=== PATIENT | female | born 1980 | race Caucasian/White ===

== ENCOUNTER 2018-04-27 09:09 | Inpatient (IN) | payer BC, OTHER ==
[2018-04-27] VITALS (7 sets, daily range): BP systolic 118–143; BP diastolic 71–88
[~2018-04-27] VITALS: Ht 172.7 cm; Wt 125.6 kg
--- NOTE | ~2018-04-27 | 2DMMODE ---
[facility] [employer] [address] 2 D/M-MODE ECHOCARDIOGRAM Name: DEVANTE STROUD Room #: 245-P ADM IN .R.#: [id number] Admission: 04/27/18 Attend Phys: Jose Hong MD Discharge: Date of : 82 Date of Service: 04/28/18 1504 Report #: [id number] THIS REPORT FOR: //name// APPROVED REPORT Study performed: 04/28/2018 13:34:50 EXAM: Comprehensive 2D, Doppler, and color-flow Echocardiogram Patient Location: ICU Room #: [facility] Status: routine BSA: 2.31 HR: 82 bpm BP: 131/89 mmHg Other Information Study Quality: Adequate Indications Pulmonary Embolism 2D Dimensions IVC: 18.00 mm Tricuspid Valve TR Peak Severino.: 2.52 m/s TR Peak Gr.: 25.33 mmHg PA Pressure: 30.00 mmHg Left Ventricle The left ventricle is normal size. There is normal left ventricular wall thickness. The left ventricular systolic function is normal. The left ventricular ejection fraction is within the normal range. LVEF is 55-60%. This study is not technically sufficient to allow evaluation of the LV diastolic function. Right Ventricle Right ventricle is mildly dilated. Right ventricular systolic function is hypokinetic Atria The left atrium size is normal. The right atrium size is normal. Aortic Valve [facility] [address] [place] [address] 2 D/M-MODE ECHOCARDIOGRAM Name: DEVANTE STROUD Room #: 245-P ADM IN M.R.#: [id number] Admission: 04/27/18 Attend Phys: Jose Hong MD Discharge: Date of : 82 Date of Service: 04/28/18 1504 Report #: [id number] The aortic valve is normal in structure. Mitral Valve The mitral valve is normal in structure. Tricuspid Valve The tricuspid valve is normal in structure. There is trace tricuspid regurgitation. Estimated PAP 30 mmHg. There is mild pulmonary hypertension. Pulmonic Valve The pulmonary valve is normal in structure. Great Vessels The aortic root is normal in size. IVC is normal in size and collapses >50% with inspiration. Pericardium There is no pericardial effusion. <Conclusion> The left ventricular systolic function is normal. LVEF is 55-60%. Right ventricle is mildly dilated. Right ventricular systolic function is hypokinetic There is trace tricuspid regurgitation. Estimated PAP 30 mmHg. There is no pericardial effusion. <ELECTRONICALLY SIGNED> By: Ryan Simmons MD, [facility] 04/28/18 1504 1504 1504 Ryan Simmons MD, FACC /INF
--- NOTE | ~2018-04-27 | 2DMMODE ---
[facility] [place] [address] 2 D/M-MODE ECHOCARDIOGRAM Name: MAXIMUSDEVANTE Room #: 245-P [facility]#: [id number] Admission: 04/27/18 Attend Phys: Jose Hong MD Discharge: Date of : 82 Date of Service: 04/27/18 1302 Report #: [id number] THIS REPORT FOR: //name// APPROVED REPORT Study performed: 04/27/2018 11:05:22 EXAM: Comprehensive 2D, Doppler, and color-flow Echocardiogram Patient Location: ER Room #: 1 Status: routine BSA: 2.34 HR: 98 bpm BP: 143/77 mmHg Other Information Study Quality: Good Indications Pulmonary Embolism Chest Pain 2D Dimensions RVDd: 40.05 mm LVEF(%): 75.42 (>50%) IVSd: 8.42 (7-11mm) LVOT Diam: 23.39 (18-24mm) LVDd: 55.05 mm PWd: 9.57 (7-11mm) Ascending Ao: 35.41 (22-36mm) LVDs: 30.46 (25-40mm) Aortic Root: 35.81 mm IVC: 12.00 mm Ford's LVEF: 75.42 % Volumes Left Atrial Volume (Systole) Single Plane 4CH: 28.33 mL Single Plane 2CH: 30.58 mL LA ESV Index: 14.00 mL/m2 Aortic Valve AoV Peak Severino.: 1.03 m/s AO Peak Gr.: 4.27 mmHg LVOT Max P.48 mmHg LVOT Max V: 0.93 m/s KAYLIN Vmax: 3.87 cm2 Mitral Valve E/A Ratio: 0.7 MV Decel. Time: 173.01 ms [facility] [place] [address] 2 D/M-MODE ECHOCARDIOGRAM Name: DEVANTE STROUD Room #: 245-P [facility] IN M.R.#: [id number] Admission: 04/27/18 Attend Phys: Jose Hong MD Discharge: Date of : 82 Date of Service: 04/27/18 1302 Report #: [id number] MV E Max Severino.: 0.53 m/s MV A Severino.: 0.74 m/s MV PHT: 50.17 ms Pulmonary Valve PV Peak Severino.: 0.93 m/s PV Peak Gr.: 3.50 mmHg Pulmonary Vein P Vein S: 0.72 m/s P Vein A: 0.23 m/s P Vein D: 0.41 m/s P Vein S/D Ratio: 1.76 Tricuspid Valve TR Peak Severino.: 3.17 m/s TR Peak Gr.: 40.08 mmHg PA Pressure: 45.00 mmHg Left Ventricle The left ventricle is normal size. There is normal LV segmental wall motion. There is normal left ventricular wall thickness. The left ventricular systolic function is normal. The left ventricular ejection fraction is within the normal range. LVEF is 60-65%. Grade I - abnormal relaxation pattern. Right Ventricle Right ventricle is at the upper limits of normal. Right ventricle is hypokinetic Atria The left atrium size is normal. Right atrium is at the upper limits of normal. Aortic Valve The aortic valve is normal in structure. No aortic regurgitation is present. There is no aortic valvular stenosis. Mitral Valve The mitral valve is normal in structure. There is no mitral valve regurgitation noted. No evidence of mitral valve stenosis. Tricuspid Valve The tricuspid valve is normal in structure. There is trace to mild tricuspid regurgitation. Estimated PAP 45 mmHg. There is moderate pulmonary hypertension. Pulmonic Valve [address] [address] 2 D/M-MODE ECHOCARDIOGRAM Name: MAXIMUSDEVANTE Brewer Room #: 245-P [facility]#: [id number] Admission: 04/27/18 Attend Phys: Jose Hong MD Discharge: Date of : 82 Date of Service: 04/27/18 1302 Report #: [id number] The pulmonary valve is normal in structure. There is no pulmonic valvular regurgitation. Great Vessels The aortic root is normal in size. IVC is normal in size and collapses >50% with inspiration. Pericardium There is no pericardial effusion. <Conclusion> The left ventricular systolic function is normal. There is normal LV segmental wall motion. LVEF is 60-65%. Mild diastolic dysfunction Right ventricle is at the upper limits of normal, hypokinetic The aortic valve is normal in structure. No aortic regurgitation or stenosis The mitral valve is normal in structure. No mitral valve regurgitation There is trace to mild tricuspid regurgitation. Estimated pulmonary artery pressure of 45 mmHg. There is no pericardial effusion. <ELECTRONICALLY SIGNED> By: Ryan Simmons MD, FACC 04/27/18 1302 1302 1302 Ryan Simmons MD, FACC /INF
--- NOTE | ~2018-04-27 | 2DMMODE ---
[address] [address] 2 D/M-MODE ECHOCARDIOGRAM Name: DEVANTE STROUD Room #: 351-P ADM IN M.R.#: [id number] Admission: 04/27/18 Attend Phys: Jose Hong MD Discharge: Date of : 82 Date of Service: 05/01/18 1343 Report #: [id number] THIS REPORT FOR: //name// APPROVED REPORT Study performed: 05/01/2018 09:51:21 EXAM: Comprehensive 2D, Doppler, and color-flow Echocardiogram Patient Location: Bedside Room #: [facility] Status: routine BSA: 2.35 HR: 90 bpm BP: 119/86 mmHg Other Information Study Quality: Good Indications HTN, Saddle PE 2D Dimensions RVDd: 39.26 mm IVC: 0.80 mm Tricuspid Valve RAP Estimate: 5.00 mmHg Left Ventricle The left ventricle is normal size. The left ventricular systolic function is normal. LVEF is 60-65%. Right Ventricle The right ventricle is mildly dilated The right ventricular systolic function is normal. Atria Right atrium is at the upper limits of normal. Aortic Valve The aortic valve is normal in structure. No aortic regurgitation is present. Mitral Valve The mitral valve is normal in structure. There is no mitral valve [address] [address] 2 D/M-MODE ECHOCARDIOGRAM Name: DEVANTE STROUD Room #: 351-P ADM IN M.R.#: [id number] Admission: 04/27/18 Attend Phys: Jose Hong MD Discharge: Date of : 82 Date of Service: 05/01/18 1343 Report #: [id number] regurgitation noted. Tricuspid Valve The tricuspid valve is normal in structure. There is no tricuspid valve regurgitation noted. Unable to assess PA pressure. Pulmonic Valve The pulmonary valve is normal in structure. Trace pulmonic regurgitation. Great Vessels IVC is normal in size and collapses >50% with inspiration. Pericardium There is no pericardial effusion. <Conclusion> The left ventricular systolic function is normal. LVEF is 60-65%. The right ventricle is mildly dilated The aortic valve is normal in structure. The mitral valve is normal in structure. Pulmonary artery pressure could not be ascertained There is no pericardial effusion. <ELECTRONICALLY SIGNED> By: Ryan Simmons MD, FACC 05/01/18 1343 42 42 Ryan Simmons MD, FACC /INF
--- NOTE | ~2018-04-27 | HC ---
[facility] [place] [address] CONSULTATION Name: DEVANTE STROUD Room #: 245-P ADM IN M.R.#: [id number] Admission: 04/27/18 Attend Phys: Jose Hong MD Discharge: Date of : 82 Report #: [id number] THIS REPORT FOR: //name// CC: Jose Paniagua Ms. Siva Marinelli MD PULMONARY CONSULTATION PRIMARY CARE PHYSICIAN: Dr. Porfirio Marinelli. REFERRAL PHYSICIAN: Dr. Hong. REASON FOR REFERRAL: Massive pulmonary embolus. HISTORY OF PRESENT ILLNESS: The patient is a 37-year-old white female who was sent to the ER from Dr. Marinelli's office due to syncope, tachycardia and chest pains. She was subsequently found to have massive pulmonary embolus. A pulmonary consultation was requested. The patient was in her usual state of health until 2 days prior to presentation when she started to develop tachycardia. She also noted chest pain described as being sharp that only lasted few seconds. Yesterday, she had 3 bouts of syncope. She had 2 syncopes occurring at the workplace and 1 at home. She denies any significant trauma. She was seen at [facility] yesterday. I do not have the details of evaluation, but she wanted to be discharged to home due to concerns for hospital bills. CT chest angiogram shows large massive saddle pulmonary embolus. She has an extensive DVT involving the left lower extremity. EKG shows left ventricular hypertrophy, nonspecific T-wave changes, prolonged QT interval. Chest x-ray was unremarkable. She has been on control pills for a few years. She denies any past history of venothromboembolic disease. She denies any family history of venothromboembolic disease. In October of this year, she underwent knee surgery. Otherwise, denies any recent ophthalmologic surgery within the past 3 months or neurologic surgery including CVA. Again, she reports no injury from a syncope. PAST MEDICAL HISTORY: Notable for depression, hypertension, exogenous obesity. ALLERGIES: None to medications. [facility] [address] [place] [address] CONSULTATION Name: MAXIMUSILIANADEVANTE Osman Room #: 245-P [facility] IN M.R.#: [id number] Admission: 04/27/18 Attend Phys: Jose Hong MD Discharge: Date of : 82 Report #: [id number] HOME MEDICATIONS: Lorazepam, sertraline, drospir/eth estra/levomefol, Nowata one tablet 4 hours p.r.n. FAMILY HISTORY: Noncontributory. SOCIAL HISTORY: She drinks socially. She denies any tobacco use. REVIEW OF SYSTEMS: As mentioned above, otherwise 10-point system review negative including denies any headache or musculoskeletal pains. PHYSICAL EXAMINATION: GENERAL: She is awake, alert, in mild distress. VITAL SIGNS: Temperature is 98 degrees Fahrenheit, pulse is 90, respiratory rate is 18, blood pressure 142/77 mmHg, saturation is 98%. HEENT: Normocephalic, atraumatic. NECK: Supple, without any lymphadenopathy or thyromegaly. CHEST: Breath sounds are good bilaterally without any rales or wheezes. CARDIOVASCULAR: Normal S1, S2. There are no murmurs or gallop. There is no JVD. No carotid bruit. Pulses are 2+/4+ bilaterally. ABDOMEN: Moderately obese, soft, nontender, no organomegaly or masses felt. GENITOURINARY: Deferred. RECTAL: Deferred. EXTREMITIES: There is no cyanosis or clubbing. Mild edema seen in the left leg. NEUROLOGICAL: Grossly intact. LABORATORY DATA: As mentioned above including CT chest angiogram, ultrasound. Chest x-ray is unremarkable. Electrolytes are normal. Creatinine is 1.1. Liver function profile is grossly unremarkable. WBC 12,100, hemoglobin is 14.3, platelets are normal. Arterial blood gas revealed pH 7.45, pCO2 of 33, pO2 of 67 and FiO2 of 21%. Preliminary echocardiogram finding shows pulmonary artery pressure around 45 mmHg. The rest of the exam is pending. IMPRESSION: 1. Massive saddle pulmonary embolus in this 37-year-old white female. The leg Doppler ultrasound revealed extensive left-sided deep vein thrombosis. She has risk factors. She is on oral control pills. She had a recent surgery 6 months ago on her knee. No recent neurosurgical surgery or ophthalmologic surgery within the past 3 months. She has also had 3 syncopal episodes yesterday. Hemodynamically, she has been relatively stable in the ER. 2. Pulmonary hypertension, pulmonary artery pressure measures mmHg. Await full echocardiogram report. 3. Subtle EKG abnormalities as mentioned above. [address] [address] CONSULTATION Name: DEVANTE STROUD Room #: 245-P [facility] IN M.R.#: [id number] Admission: 04/27/18 Attend Phys: Jose Hong MD Discharge: Date of : 82 Report #: [id number] 4. Multiple syncopes due to a large pulmonary embolus. 5. Hypertension. 6. Moderate obesity. RECOMMENDATIONS AND DISCUSSION: Based on her clinical presentation, findings of the CT chest angiogram, I believe the patient will be a candidate for thrombolytic therapy. I have discussed in detail with the patient. Options of treating pulmonary embolus were discussed including by heparin therapy with placement of IVC versus thrombolytic therapy. Again, because of the symptoms with syncope and massive saddle embolus, I would recommend thrombolytic therapy. The risks and benefits of anticoagulation along with thrombolytic therapy were discussed including possibility of significant to fatal bleed is less than 1%. Following discussion, she voices understanding and willing to proceed. Would recommend tPA 100 mg to be infused over 2 hours, I will resume heparin at around 10:00 p.m. later today as Lovenox was given around 10:00 a.m. while in the ER. For now, I would continue heparin and to monitor for any bleeding complications for one to two days before using alternative agent such as Lovenox or oral anticoagulant. Oral contraceptives will need to be discontinued for now. We will recommend ICU monitoring for possible bleeding complications. Thank you for this consultation. <ELECTRONICALLY SIGNED> By: Jakob Gastelum MD 04/27/18 1732 1225 1616 Jakob Gastelum MD /nt
--- NOTE | ~2018-04-27 | EKG ---
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: [facility] : 1980 Requested By: Olman Daley Order Number: [id number] MD: Ryan Simmons Measurements Intervals [place] Rate: 112 P: 61 FL: 148 QRS: -12 QRSD: 100 T: -61 QT: 376 QTc: 514 Interpretive Statements Sinus tachycardia Inferior infarct, age indeterminate Prolonged QT interval Nonspecific ST and T wave abnormality Compared to ECG 11/22/2016 16:43:27 Criteria for inferior infarct now present Prolonged QT interval now present Electronically Signed On 04-28-2018 8:34:00 CDT by Ryan Simmons [email or web address] <ELECTRONICALLY SIGNED> By: Ryan Simmons MD, [facility] 04/28/18 0834 1 09 Ryan Simmons MD, [facility] /EPI
[~2018-04-27 09:09] MED LIST: ATIVAN1 MG PO
[2018-04-27 09:53] LABS: ABSOLUTE NEUTROPHILS 9.5 thou/uL (1.4-8.2); BASOPHILS 0.4 % (0.0-2.0); EOSINOPHILS 2.4 % (0.0-3.0); HEMATOCRIT 42.4 % (37.0-47.0); HEMOGLOBIN 14.3 gm/dL (12.0-15.0); LYMPHOCYTES 12.2 % (24.0-44.0); MCH 28.6 pg (26.0-34.0); MCHC 33.8 g/dL (28.0-37.0); MCV 84.6 fL (80.0-100.0); MONOCYTES 5.9 % (1.0-8.0); PLATELET COUNT 171 thou/uL (150-400); POLYS 79.1 % (36.0-66.0); RBC 5.01 mil/uL (4.20-5.00); RDW 15.3 % (10.5-14.5); WBC 12.1 thou/uL (4.0-11.0)
[2018-04-27 10:02] LABS: BE(vivo) -0.4 mmol/L (-2 to +3); HCO3 22.8 mmol/L (22.0-26.0); PCO2 33.4 mmHg (35.0-45.0); PO2 67.5 mmHg (80.0-100.0); pH 7.452 (7.360-7.450); sO2 94.4 % (92.0-98.0)
[2018-04-27 10:04] LABS: CALCIUM 9.7 mg/dL (8.5-10.1); CREATININE 1.1 mg/dL (0.6-1.0); POTASSIUM 3.6 mmol/L (3.5-5.1)
[2018-04-27 10:11] LABS: ALBUMIN 3.5 g/dL (3.4-5.0); APTT 26.6 Seconds (24.5-32.8); MAGNESIUM 1.7 mg/dL (1.8-2.4); TOTAL BILIRUBIN 0.5 mg/dL (<0.1-1.0); TOTAL PROTEIN 8.5 g/dL (6.4-8.2)
[2018-04-27 10:12] LABS: TROPONIN-I 1.67 ng/mL (<0.06)
[2018-04-27 10:19] LABS: D-DIMER 26.05 ug/mLFEU (0.19-0.50)
[2018-04-27] MEDS ORDERED: DROSP-EE-LEVOM1 EACH PO (10:31)
[2018-04-27] MEDS ORDERED: SERTRALINE HCL100 MG PO (10:31)
[2018-04-27] MEDS ORDERED: NORCO 5-325 TA1 EACH PO (10:31)
[2018-04-27 13:14] LABS: HEMATOCRIT 42.5 % (37.0-47.0); HEMOGLOBIN 14.1 gm/dL (12.0-15.0); MCH 28.3 pg (26.0-34.0); MCHC 33.1 g/dL (28.0-37.0); MCV 85.3 fL (80.0-100.0); RBC 4.98 mil/uL (4.20-5.00); RDW 15.4 % (10.5-14.5); WBC 12.2 thou/uL (4.0-11.0)
[2018-04-27] MEDS ORDERED: NORVASC10 MG PO (13:22)
[2018-04-27] MEDS ORDERED: TRIAMTERENE-HC1 EAC2 PO (13:22)
[2018-04-27 16:23] LABS: BE(vivo) -1.9 mmol/L (-2 to +3); HCO3 22.6 mmol/L (22.0-26.0); PCO2 37.8 mmHg (35.0-45.0); PO2 92.2 mmHg (80.0-100.0); pH 7.395 (7.360-7.450); sO2 97.1 % (92.0-98.0)
[2018-04-27 16:38] LABS: URINE BILIRUBIN NEGATIVE (Negative); URINE BLOOD 1+ (Negative); URINE CLARITY CLEAR; URINE COLOR YELLOW; URINE GLUCOSE-RANDOM* NEGATIVE (Negative); URINE KETONES NEGATIVE (Negative); URINE LEUKOCYTES NEGATIVE (Negative); URINE NITRITE NEGATIVE (Negative); URINE PROTEIN (DIPSTICK) 2+ (Negative); URINE SPECIFIC GRAVITY 1.015 (1.005-1.035); URINE UROBILINOGEN 0.2 E.U./dl (0.2-1.0)
[2018-04-27 16:45] LABS: AMP/METHAMP Negative (Negative); BARBITURATES Negative (Negative); BENZODIAZEPINES Negative (Negative); COCAINE Negative (Negative); METHADONE Negative (Negative); OPIATES Negative (Negative); PCP Negative (Negative)
[2018-04-27 16:58] LABS: CASTS None Seen /LPF (None Seen); MUCUS 0-3 Light strn/LPF (None Seen); SQUAMOUS 4-10 Moderate /LPF (0-3); URINE WBC 0-5 Rare /HPF (0-5)
[2018-04-27 16:59] LABS: BACTERIA None Seen /HPF (None Seen); CRYSTALS None Seen /LPF (None Seen); URINE RBC 0-2 Rare /HPF (0-2)
[2018-04-28] VITALS (12 sets, daily range): BP systolic 97–136; BP diastolic 52–91
[2018-04-28 04:53] LABS: HEMATOCRIT 37.7 % (37.0-47.0); HEMOGLOBIN 12.7 gm/dL (12.0-15.0); MCH 28.8 pg (26.0-34.0); MCHC 33.6 g/dL (28.0-37.0); MCV 85.5 fL (80.0-100.0); RBC 4.41 mil/uL (4.20-5.00); RDW 15.5 % (10.5-14.5); WBC 8.6 thou/uL (4.0-11.0)
[2018-04-28 05:17] LABS: CALCIUM 8.6 mg/dL (8.5-10.1); POTASSIUM 3.6 mmol/L (3.5-5.1); TOTAL BILIRUBIN 0.4 mg/dL (<0.1-1.0); TOTAL PROTEIN 7.1 g/dL (6.4-8.2)
[2018-04-29] VITALS (9 sets, daily range): BP systolic 113–132; BP diastolic 63–90
[2018-04-29 04:54] LABS: HEMATOCRIT 37.7 % (37.0-47.0); HEMOGLOBIN 12.8 gm/dL (12.0-15.0); MCH 28.7 pg (26.0-34.0); MCHC 33.9 g/dL (28.0-37.0); MCV 84.7 fL (80.0-100.0); RBC 4.44 mil/uL (4.20-5.00); RDW 15.4 % (10.5-14.5); WBC 10.1 thou/uL (4.0-11.0)
[2018-04-29 05:01] LABS: CALCIUM 8.7 mg/dL (8.5-10.1); CREATININE 0.9 mg/dL (0.6-1.0)
[2018-04-29 22:17] LABS: BE(vivo) 1.1 mmol/L (-2 to +3); HCO3 24.5 mmol/L (22.0-26.0); PCO2 34.9 mmHg (35.0-45.0); PO2 342.3 mmHg (80.0-100.0); pH 7.464 (7.360-7.450); sO2 99.8 % (92.0-98.0)
[2018-04-30 09:03] LABS: HEMATOCRIT 36.8 % (37.0-47.0); HEMOGLOBIN 12.3 gm/dL (12.0-15.0); MCH 28.7 pg (26.0-34.0); MCHC 33.5 g/dL (28.0-37.0); MCV 85.6 fL (80.0-100.0); RBC 4.3 mil/uL (4.20-5.00); RDW 15.3 % (10.5-14.5); WBC 10.2 thou/uL (4.0-11.0)
[2018-05-01] VITALS (7 sets, daily range): BP systolic 114–138; BP diastolic 84–107
[2018-05-01 05:25] LABS: CALCIUM 9.5 mg/dL (8.5-10.1); CREATININE 0.9 mg/dL (0.6-1.0); POTASSIUM 3.6 mmol/L (3.5-5.1)
[2018-05-01 05:44] LABS: HEMATOCRIT 37.4 % (37.0-47.0); HEMOGLOBIN 12.7 gm/dL (12.0-15.0); MCH 28.7 pg (26.0-34.0); MCV 84.6 fL (80.0-100.0); RBC 4.42 mil/uL (4.20-5.00); RDW 15.4 % (10.5-14.5); WBC 11.9 thou/uL (4.0-11.0)
[2018-05-02 04:34] VITALS: BP 112/79
[2018-05-02 07:47] VITALS: BP 125/85
[2018-05-02] MEDS ORDERED: HYDROCODON-ACE1 EAC7 PO (08:45)
[2018-05-02 09:29] LABS: PROTIME 10.4 Seconds (9.3-11.4)
[2018-05-02 11:36] VITALS: BP 131/87
[2018-05-02 16:37] VITALS: BP 122/81
[2018-05-02 19:10] VITALS: BP 133/84
[2018-05-03 04:02] VITALS: BP 100/68
[2018-05-03 05:36] LABS: HEMATOCRIT 36.6 % (37.0-47.0); HEMOGLOBIN 12.5 gm/dL (12.0-15.0); MCH 29.1 pg (26.0-34.0); MCHC 34.2 g/dL (28.0-37.0); MCV 85.1 fL (80.0-100.0); RBC 4.29 mil/uL (4.20-5.00); RDW 15.1 % (10.5-14.5); WBC 10.8 thou/uL (4.0-11.0)
[2018-05-03 05:46] LABS: CALCIUM 9.1 mg/dL (8.5-10.1); POTASSIUM 3.9 mmol/L (3.5-5.1)
[2018-05-03 05:48] LABS: PROTIME 10.6 Seconds (9.3-11.4)
[2018-05-03 08:09] VITALS: BP 130/95
[2018-05-03 11:37] VITALS: BP 122/84
[2018-05-03] MEDS ORDERED: ENOXAPARIN120 MG/0.1 SUBQ (11:55)
[2018-05-03 14:59] VITALS: BP 122/84
[2018-05-03 16:32] VITALS: BP 122/88
[2018-05-03 19:30] VITALS: BP 116/75
[2018-05-04 04:50] VITALS: BP 113/81
[2018-05-04 05:51] LABS: INR 1.1; PROTIME 10.9 Seconds (9.3-11.4)
[2018-05-04 08:41] VITALS: BP 117/78
[2018-05-04 13:13] VITALS: BP 121/85
[2018-05-04] MEDS ORDERED: SERTRALINE HCL100 MG PO (15:36)
[2018-05-05] MEDS ORDERED: ATIVAN1 MG PO (00:39)
== END 2018-05-04 15:53 | disposition home or self-care (01) | DRG 176 ==
LOC: ER 09:09 → EROBS 10:55 → ICU 10:55 → 2N 04-29 12:24 → ICU 04-29 23:09 → 3W 05-01 07:39 → ENTRNSPT 05-04 15:46 → EDTRNSPTSTS 05-04 15:50 → 3W 05-04 15:53
PROVIDERS: Emergency Medicine; Hospitalist; Internal Medicine Pulmonary Disease; Nurse Practitioner Adult Health
PROC: 4A00X4Z Measurement of Central Nervous Electrical Activity, External Approach (ICD-10-PCS; principal; 2018-04-30)
DX: I26.92 Saddle embolus of pulmonary artery without acute cor pulmonale (principal); Z68.41 Body mass index [BMI] 40.0-44.9, adult; I82.412 Acute embolism and thrombosis of left femoral vein; I82.432 Acute embolism and thrombosis of left popliteal vein; F32.9 Major depressive disorder, single episode, unspecified; I27.20 Pulmonary hypertension, unspecified; E66.09 Other obesity due to excess calories; I10 Essential (primary) hypertension; I51.9 Heart disease, unspecified; F41.9 Anxiety disorder, unspecified; T40.605A Adverse effect of unspecified narcotics, initial encounter; Y92.89 Other specified places as the place of occurrence of the external cause; Z79.899 Other long term (current) drug therapy; Z88.5 Allergy status to narcotic agent; Z88.8 Allergy status to other drugs, medicaments and biological substances; Z82.49 Family history of ischemic heart disease and other diseases of the circulatory system
CPT/HCPCS: 10196; 10203; 10879

== ENCOUNTER 2018-05-04 22:50 | Emergency (ER) | payer BC, OTHER ==
[~2018-05-04] VITALS: Ht 172.7 cm; Wt 125.2 kg
--- NOTE | ~2018-05-04 | EKG ---
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 Home Health: [facility] : 1980 Requested By: Clarisse Arrington Order Number: [id number] MD: Ryan Simmons Measurements Intervals [place] Rate: 108 P: 53 [place]: 152 QRS: -9 QRSD: 87 T: 39 QT: 348 QTc: 467 Interpretive Statements Sinus tachycardia Otherwise no significant abnormality Compared to ECG 04/27/2018 09:12:07 Left ventricular hypertrophy now present Myocardial infarct finding no longer present Prolonged QT interval no longer present ST (T wave) deviation no longer present Electronically Signed On 05-05-2018 8:51:58 CDT by Ryan Simmons [email or web address] <ELECTRONICALLY SIGNED> By: Ryan Simmons MD, [facility] 05/05/18 0851 2258 2258 Ryan Simmons MD, [facility] /EPI
[~2018-05-04 22:50] MED LIST changes: +DROSP-EE-LEVOM1 EACH PO; +ENOXAPARIN120 MG/0.1 SUBQ; +HYDROCODON-ACE1 EAC7 PO; +NORCO 5-325 TA1 EACH PO; +NORVASC10 MG PO; +SERTRALINE HCL100 MG PO; +TRIAMTERENE-HC1 EAC2 PO
[2018-05-04 23:13] LABS: ABSOLUTE NEUTROPHILS 8.9 thou/uL (1.4-8.2); BASOPHILS 0.6 % (0.0-2.0); EOSINOPHILS 1.5 % (0.0-3.0); HEMATOCRIT 37.9 % (37.0-47.0); HEMOGLOBIN 12.9 gm/dL (12.0-15.0); LYMPHOCYTES 17.8 % (24.0-44.0); MCHC 34.1 g/dL (28.0-37.0); MONOCYTES 7.1 % (1.0-8.0); PLATELET COUNT 356 thou/uL (150-400); RBC 4.46 mil/uL (4.20-5.00); RDW 15.3 % (10.5-14.5); WBC 12.2 thou/uL (4.0-11.0)
[2018-05-04 23:25] LABS: ANION GAP 9 mmol/L (7-16); BUN 19 mg/dL (7-18); CALCIUM 10.1 mg/dL (8.5-10.1); CHLORIDE 99 mmol/L (98-107); CO2 27 mmol/L (21-32); CREATININE 1.1 mg/dL (0.6-1.0); GLUCOSE 123 mg/dL (74-106); POTASSIUM 3.6 mmol/L (3.5-5.1); SODIUM 135 mmol/L (136-145)
[2018-05-04 23:29] LABS: D-DIMER 3.59 ug/mLFEU (0.19-0.50); INR 1.2; PROTIME 12.7 Seconds (9.3-11.4)
[2018-05-04 23:35] LABS: ALBUMIN 3.8 g/dL (3.4-5.0); SGOT 27 U/L (15-37); SGPT 44 U/L (30-65); TOTAL BILIRUBIN 0.5 mg/dL (<0.1-1.0); TOTAL PROTEIN 8.8 g/dL (6.4-8.2); TROPONIN-I <0.06 ng/mL (<0.06)
[2018-05-04 23:36] LABS: APTT 35.1 Seconds (24.5-32.8)
[2018-05-05] MEDS ORDERED: ATIVAN1 MG PO (00:39)
== END 2018-05-05 00:54 | disposition home or self-care (01) ==
LOC: ER 22:50
PROVIDERS: Physician Assistant
DX: I26.99 Other pulmonary embolism without acute cor pulmonale (principal); I82.402 Acute embolism and thrombosis of unspecified deep veins of left lower extremity; F32.9 Major depressive disorder, single episode, unspecified; I10 Essential (primary) hypertension; Z88.5 Allergy status to narcotic agent; Z88.6 Allergy status to analgesic agent

== ENCOUNTER → 2018-09-06 | Outpatient (CLI) | payer BC, OTHER | LOC: MRI 08:58 | DX: Z32.00 Encounter for pregnancy test, result unknown (principal); R93.5 Abnormal findings on diagnostic imaging of other abdominal regions, including retroperitoneum ==

== ENCOUNTER 2018-10-08 15:49 | Emergency (ER) | payer OTHER, BC ==
[~2018-10-08] VITALS: Ht 172.7 cm; Wt 113.4 kg
[2018-10-08] MEDS ORDERED: COUMADIN 3 MG TA3 M1 PO (15:55)
[2018-10-08 16:27] LABS: INR 2.6; PROTIME 26.9 Seconds (9.3-11.4)
[2018-10-08] MEDS ORDERED: NORCO 5-325 TA1 EACH PO (18:09)
[2018-10-08 18:34] VITALS: BP 108/57
== END 2018-10-08 22:03 | disposition home or self-care (01) ==
LOC: ER 15:49
PROVIDERS: Emergency Medicine
DX: M79.605 Pain in left leg (principal); Z79.01 Long term (current) use of anticoagulants; F32.9 Major depressive disorder, single episode, unspecified; I10 Essential (primary) hypertension; Z86.711 Personal history of pulmonary embolism; Z86.718 Personal history of other venous thrombosis and embolism; Z88.5 Allergy status to narcotic agent; V43.52XA Car driver injured in collision with other type car in traffic accident, initial encounter; Y93.I9 Activity, other involving external motion; Y92.415 Exit ramp or entrance ramp of street or highway as the place of occurrence of the external cause; Y99.8 Other external cause status

== ENCOUNTER → 2020-06-06 | Outpatient (CLI) | payer BC, OTHER ==
[~2020-06-06] MED LIST changes: +COUMADIN 3 MG TA3 M1 PO
== END ==
LOC: SJCVCIMAG 09:17
PROVIDERS: ATTEND Internal Medicine Cardiovascular Disease
DX: I82.412 Acute embolism and thrombosis of left femoral vein (principal); I87.2 Venous insufficiency (chronic) (peripheral)

== ENCOUNTER 2021-12-12 18:39 | Emergency (ER) | payer BC, OTHER ==
[~2021-12-12] VITALS: Ht 172.7 cm; Wt 138.3 kg
[2021-12-12 18:56] LABS: URINE BILIRUBIN NEGATIVE (Negative); URINE BLOOD NEGATIVE (Negative); URINE CLARITY CLEAR; URINE COLOR YELLOW; URINE GLUCOSE-RANDOM* NEGATIVE (Negative); URINE KETONES NEGATIVE (Negative); URINE LEUKOCYTES-REFLEX NEGATIVE (Negative); URINE NITRITE-REFLEX NEGATIVE (Negative); URINE PROTEIN (DIPSTICK) NEGATIVE (Negative); URINE SPECIFIC GRAVITY 1.015 (1.005-1.035); URINE UROBILINOGEN 0.2 E.U./dl (0.2-1.0)
[2021-12-12 19:40] LABS: HEMATOCRIT 34.7 % (37.0-47.0); HEMOGLOBIN 11.3 gm/dL (12.0-15.0); MCH 26.3 pg (26.0-34.0); MCHC 32.5 g/dL (28.0-37.0); MCV 80.9 fL (80.0-100.0); RBC 4.28 mil/uL (4.20-5.00); RDW 19.6 % (10.5-14.5); WBC 7.8 thou/uL (4.0-11.0)
[2021-12-12 19:50] LABS: CALCIUM 9.4 mg/dL (8.5-10.1); CREATININE 0.8 mg/dL (0.6-1.0); POTASSIUM 3.4 mmol/L (3.5-5.1)
[2021-12-12 20:00] LABS: ALBUMIN 3.3 g/dL (3.4-5.0); TOTAL BILIRUBIN 0.1 mg/dL (0.2-1.0); TOTAL PROTEIN 7.2 g/dL (6.4-8.2)
[2021-12-12] MEDS ORDERED: METHOCARBAMOL500 M2 PO (22:18)
[2021-12-12] MEDS ORDERED: MEDROLDOSEPACK PO (22:18)
[2021-12-12 22:27] VITALS: BP 131/81
--- NOTE | 2021-12-13 09:54 | EKG ---
[place] [address] [facility] [place] [address] ELECTROCARDIOGRAM REPORT Name: DEVANTE STROUD Room #: DEP MARK Guzman#: [id number] Admission: 12/12/21 Attend Phys: Discharge: 12/12/21 Date of : 82 Report #: [id number] [facility] ED Test Date: 2021-12-12 Test Time: 20:02:15 Pat Name: DEVANTE STROUD Department: Room: Gender: F [employer]: : 1980 Requested By: Sharyn Greenwood Order Number: [id number] MD: Dominick Perez Measurements Intervals [place] Rate: 75 P: 52 RI: 161 QRS: -21 QRSD: 100 T: 19 QT: 380 QTc: 425 Interpretive Statements Sinus rhythm Probable left ventricular hypertrophy Compared to ECG 07/06/2018 10:45:08 No significant changes Electronically Signed On 12-13-2021 9:54:38 GLUE COOK by Dominick Perez [email or web address] <ELECTRONICALLY SIGNED> By: Dominick Perez MD 12/13/21 0954 01 01 Dominick Perez MD /EPI
== END 2021-12-12 22:40 | disposition home or self-care (01) ==
LOC: ER 18:39
PROVIDERS: Nurse Practitioner Family
DX: R10.31 Right lower quadrant pain (principal); F32.9 Major depressive disorder, single episode, unspecified; I10 Essential (primary) hypertension; Z79.899 Other long term (current) drug therapy; Z88.5 Allergy status to narcotic agent; Z88.6 Allergy status to analgesic agent